=== PATIENT | female | born 1995 | race African-American/Black ===

== ENCOUNTER 2022-01-18 13:03 | Emergency (ER) | payer MEDICAID, SELFPAY ==
--- NOTE | ~2022-01-18 | XR_ITS ---
EXAMINATION: XR chest 2V DATE: 01/18/2022 13:32 INDICATION: Cough and chest congestion TECHNIQUE: PA and lateral views of the chest are obtained. COMPARISON: None available FINDINGS: The lungs are free of acute opacities. No pleural effusion or pneumothorax. The cardiomedia stinal silhouette is normal. There is mild thoracic spondylosis. IMPRESSION: 1. No acute cardiopulmonary abnormality. Reviewed, dictated and finalized at location B.
[2022-01-18 13:06] VITALS: BP 113/53; PULSE 100; RESP 14; TEMP 36.6; O2SAT 100
[2022-01-18 13:35] LABS: Basophils Percent Auto 0.5 % (0.2-1.2); Eosinophils Absolute Auto 0.1 K/mm3 (0-0.3); Eosinophils Percent Auto 1.4 % (0-4.4); Hematocrit 37.8 % (37.0-47.0); Hemoglobin 12.3 g/dL (12.0-15.0); Immature Granulocyte Absolute 0.01 K/mm3 (0.00-0.031); Immature Granulocyte Percent A 0.2 % (0-0.5); Lymphocytes Absolute Auto 2.63 K/mm3 (0.9-3.2); Lymphocytes Percent Auto 46.9 % (18.3-44.2); Mean Corpuscular HGB Conc 32.5 g/dl (32-36); Mean Corpuscular Hemoglobin 32.2 pg (26-34); Mean Platelet Volume 9.5 fl (7.4-10.4); Monocytes Absolute Auto 0.4 K/mm3 (0.1-0.6); Neutrophils Absolute Auto 2.5 K/mm3 (1.3-6.7); Platelet Count Result 206 k/mm3 (150-375); Red Blood Count 3.82 M/mm3 (4.2-5.4); Red Cell Distribution Width 13.1 % (11.5-14.5); White Blood Count 5.6 K/mm3 (4.5-10.0)
[2022-01-18 13:44] LABS: Alanine Aminotransferase 14 U/L (6-35); Albumin Level 3.9 g/dL (3.5-5.1); Alkaline Phosphatase 53 U/L (38-126); Anion Gap 15 mmol/L (8-16); Aspartate Amino Transferase 20 U/L (14-36); Bilirubin,Total 0.5 mg/dL (0.2-1.3); Blood Urea Nitrogen 8 mg/dL (7-17); Calcium 8.9 mg/dL (8.4-10.2); Carbon Dioxide 20 mmol/L (22-30); Chloride 103 mmol/L (98-107); Estimated CRCL calculation 91 ml/min; Estimated Glomerular Filt Rate > 60; Glucose 87 mg/dL (65-110); Potassium 3.5 mmol/L (3.4-5.0); Sodium 138 mmol/L (137-145)
--- NOTE | 2022-01-18 13:56 | ED.GENADULT ---
HPI - General Adult General Chief complaint: Upper Respiratory Infection Stated complaint: Coughing and Chest Congestion Time Seen by Provider: 01/18/22 13:39 History of Present Illness HPI narrative: 26-year-old female here for evaluation of upper respiratory infectious type symptoms for the past week. Patient states that she has had nasal congestion, nonproductive cough, rhinorrhea. She has an 8-year-old son at home who recently returned back to school. She took a COVID test at home that was negative. She denies any shortness of breath, chest pain, fevers, chills, syncope, weakness, sore throat. Has not taken any medication at home for her symptoms. Related Data Allergies Allergy/AdvReac Type Severity Reaction Status Date / Time No Known Allergies Allergy Verified 01/18/22 13:34 Review of Systems Review of Systems: Gen.: Denies fevers or chills Eyes: Denies eye pain or visual change ENT: Reports congestion Respiratory: Reports cough. No shortness of breath. CV: Denies chest pain or palpitations GI: Denies abdominal pain nausea, emesis or diarrhea denies burning, urgency, frequency or hematuria Musculoskeletal: Denies back pain or muscle pain Neuro: Denies numbness, tingling, weakness or focal weakness Skin: Denies rash Except as documented, all other systems reviewed and negative Exam Narrative: APPEARANCE: Well appearing, no pain in distress, well-nourished. Head: Normocephalic and atraumatic. EYES: PERRLA/EOMI, conjunctivae clear NOSE: No nasal drainage EARS: External ear normal in appearance THROAT: Oropharynx is clear. Mucous membranes are moist. NECK: Supple. No adenopathy, no masses. RESPIRATORY: Airway patent, respirations nonlabored. Clear to auscultation bilaterally, no rales, rhonchi, wheezing. CARDIOVASCULAR: Regular rate and rhythm without murmurs, rubs, or gallops. ABDOMINAL: Normoactive bowel sounds. Soft, nontender, nondistended. No rebound tenderness or guarding. MUSCULOSKELETAL: Extremities are warm and well-perfused. Moves all extremities well. No edema. NEURO: Normal speech. No focal neurologic deficits. SKIN: Skin is warm and dry. No rashes. PSYCHIATRIC: Normal affect/mood. Course Vital Signs Vital signs: Vital Signs Temperature 97.8 F 01/18/22 13:06 Pulse Rate 100 01/18/22 13:06 Respiratory Rate 14 01/18/22 13:06 Blood Pressure 113/53 L 01/18/22 13:06 Pulse Oximetry 100 01/18/22 13:06 Oxygen Delivery Room Air 01/18/22 13:06 Temperature 97.8 F 01/18/22 13:06 Pulse Rate 100 01/18/22 13:06 Respiratory Rate 14 01/18/22 13:06 Blood Pressure 113/53 L 01/18/22 13:06 Pulse Oximetry 100 01/18/22 13:06 Oxygen Delivery Room Air 01/18/22 13:06 Medical Decision Making MDM Narrative Medical decision making narrative: 26-year-old female here for evaluation of upper respiratory infectious type symptoms for the past several days. Here she is nontoxic-appearing with normal vital signs. Her heart and lungs are clear to auscultation, posterior oropharynx is clear. Home COVID test negative do not feel indication to repeat in the ED. Chest x-ray and basic labs unremarkable. Likely upper respiratory infection. No chest pain, fever, or shortness of breath to suggest more serious infection. Encouraged supportive measures at home. She was given return precautions and she voiced understanding. Vital Signs Vital Signs: Vital Signs Temperature 97.8 F 01/18/22 13:06 Pulse Rate 100 01/18/22 13:06 Respiratory Rate 14 01/18/22 13:06 Blood Pressure 113/53 L 01/18/22 13:06 Pulse Oximetry 100 01/18/22 13:06 Oxygen Delivery Room Air 01/18/22 13:06 Temperature 97.8 F 01/18/22 13:06 Pulse Rate 100 01/18/22 13:06 Respiratory Rate 14 01/18/22 13:06 Blood Pressure 113/53 L 01/18/22 13:06 Pulse Oximetry 100 01/18/22 13:06 Oxygen Delivery Room Air 01/18/22 13:06 Lab Data Result diagrams: 01/18/22 13:25
== END 2022-01-18 14:09 | disposition home or self-care (01) ==
LOC: ANHED 14:02
PROVIDERS: Emergency Medicine; Emergency Provider Emergency Medicine
DX: J06.9 Acute upper respiratory infection, unspecified (principal)
CPT/HCPCS: 36415; 71046; 80053; 85025; 99283